=== PATIENT | male | born 1955 | race Caucasian/White ===

== ENCOUNTER 2017-03-29 12:26 | Emergency (ER) | payer MEDICARE, OTHER ==
[~2017-03-29] VITALS: Wt 109.0 kg
[~2017-03-29 12:26] MED LIST: ACET325T33 PO; FAMO20TA18 PO; GABA100C14 PO; LORA0.5T PO; OLAN15TA7 PO; SAN30GM TOP; SERT50TA6 PO
--- NOTE | 2017-03-29 13:43 | ERD ---
ER Documentation Chief Complaint Date/Time DATE: 03/29/17 TIME: 13:43 Chief Complaint BILATERAL LEG PAIN AND SENT BY MD NOGUEIRA 62-year-old man with a long history of osteomyelitis of both feet status post toe amputations is here for pain control. He is noncompliant with appointments amputation prevention center, but states he has been using linezolid and levofloxacin as prescribed daily. He denies any new discharge from his toes, no new redness or swelling to the feet, no fevers or chills, no vomiting or diarrhea, no complaints of chest pain or shortness of breath. Patient denies abdominal pain, cramping, or diarrhea. ROS All systems reviewed and are negative except as per history of present illness. Medications Home Meds Active Scripts Oxycodone HCl/Acetaminophen (Percocet 5-325 mg Tablet) 1 Each Tablet, 1 EACH PO TID for PAIN LEVEL 6-10, #12 TAB Prov:NANI DELVALLE MD 03/29/17 Ibuprofen* (Ibuprofen*) 600 Mg Tablet, 600 MG PO Q8 for PAIN AND/OR INFLAMMATION , #60 TAB Prov:NANI DELVALLE MD 03/29/17 Reported Medications Levofloxacin* (Levofloxacin*) 500 Mg Tablet, 500 MG PO DAILY, TAB STARTED 03-07-17 FOR 42 DAYS 03/29/17 Linezolid* (Zyvox*) 600 Mg Tablet, 600 MG PO BID, TAB 03/29/17 Gabapentin* (Gabapentin*) 600 Mg Tablet, 600 MG PO BID, #60 TAB 03/29/17 Discontinued Reported Medications Lorazepam* (Lorazepam*) 0.5 Mg Tablet, 0.5 MG PO BID Y for ANXIETY, TAB 07/13/16 Sertraline Hcl* (Sertraline Hcl*) 50 Mg Tablet, 50 MG PO DAILY, #30 TAB 07/13/16 Discontinued Scripts Olanzapine* (Olanzapine*) 15 Mg Tablet, 15 MG PO QHS, #30 TAB Prov:CRISTI MALONE 08/30/16 Gabapentin* (Gabapentin*) 100 Mg Capsule, 100 MG PO TID for 30 Days, CAP Prov:CRISTI MALONE 08/29/16 Famotidine* (Famotidine*) 20 Mg Tablet, 20 MG PO DAILY for 30 Days, #60 TAB Prov:NANO REGALADO MD 08/07/16 Collagenase* (Santyl*) 30 Gm Oint..gm., 1 APPLIC TOP DAILY for 30 Days, TUB Prov:NANO REGALADO MD 08/07/16 Acetaminophen* (Tylenol*) 325 Mg Tablet, 650 MG PO Q6H Y for PAIN LEVEL 1-3 OR FEVER for 30 Days, #120 TAB Prov:NANO REGALADO MD 08/07/16 Allergies Allergies: Coded Allergies: No Known Allergy (Unverified , 03/29/17) PMhx/Soc Bilateral foot osteomyelitis peripheral neuropathy with chronic paresthesias, diabetic foot ulcers, diabetes mellitus, peripheral vascular disease History of Surgery: Yes (left greater toe amputation ) Anesthesia Reaction: No Hx Neurological Disorder: Yes (nondiabetic neuropaty) Hx Respiratory Disorders: No Hx Cardiac Disorders: No Hx Psychiatric Problems: Yes (Hx of depression and anxiety. Hx of suicide attempt.) Hx Miscellaneous Medical Probl: No Hx Alcohol Use: No Hx Substance Use: Yes Hx Tobacco Use: Yes (3 CIGARETTE/D, "I DID NOT SMOKE FOR A FEW DAYS) FmHx Family History: No diabetes Physical Exam Vitals Vital Signs Date Time Temp Pulse Resp B/P Pulse Ox O2 Delivery O2 Flow Rate FiO2 03/29/17 12:30 98.0 78 18 134/83 99 Physical Exam GENERAL: Well-developed, well-nourished, well-hydrated, in no apparent distress , looks nontoxic in appearance HEENT: Moist mucous membranes, pink conjunctiva, no cervical spine tenderness or step-off deformities, no goiter, no jaundice or icterus, extraocular movements intact without pain. No submandibular induration, and no pharyngeal erythema NEURO: Alert and oriented 3, cranial nerves II through XII intact bilaterally, pupils equal round reactive to light, no focal deficits or facial asymmetry, sensation intact distally Strength 5/5 in upper and lower extremities bilaterally CARDIAC: Regular rate and rhythm, no murmurs rubs or gallops LUNGS: Clear bilaterally no wheezing crackles or stridor ABDOMEN: Soft nontender, no guarding, no rigidity, no rebound, no psoas sign no obturator sign. Normoactive bowel sounds SKIN: Warm and dry to touch, superficial ulcerations to the palmar aspect of both feet without active purulent discharge, minimal erythema EXTREMITIES: No clubbing cyanosis or edema, calves are bilaterally symmetrical, amputation of the left big toe and chronic thickening of the skin with a superficial skin ulceration without active discharge, no toe or foot skin erythema. Chronic bony deformity to the forefoot of the right foot PSYCH: Normal affect without agitation or irritability Result Diagram: 03/29/17 1440 03/29/17 1440 Results 24 hrs Laboratory Tests Test 03/29/17 14:40 White Blood Count 5.110^3/ul Red Blood Count 4.5610^6/ul Hemoglobin 14.4g/dl Hematocrit 41.8% Mean Corpuscular Volume 91.7fl Mean Corpuscular Hemoglobin 31.6pg Mean Corpuscular Hemoglobin Concent 34.4g/dl Red Cell Distribution Width 13.5% Platelet Count 4710^3/UL Mean Platelet Volume 12.2fl Neutrophils % 44.6% Lymphocytes % 40.2% Monocytes % 12.6% Eosinophils % 1.6% Basophils % 0.6% Nucleated Red Blood Cells % 0.0/100WBC Neutrophils # 2.310^3/ul Lymphocytes # 2.010^3/ul Monocytes # 0.610^3/ul Eosinophils # 0.110^3/ul Basophils # 0.010^3/ul Nucleated Red Blood Cells # 0.010^3/ul Prothrombin Time 13.7Sec Prothrombin Time Ratio 1.1 INR International Normalized Ratio 1.05 Sodium Level 144mmol/L Potassium Level 3.8mmol/L Chloride Level 102mmol/L Carbon Dioxide Level 29mmol/L Anion Gap 17 Blood Urea Nitrogen 21mg/dl Creatinine 1.04mg/dl Glucose Level 95mg/dl Calcium Level 9.1mg/dl Current Medications Medications (Trade) Dose Ordered Sig/Isiah Route PRN Reason Start Time Stop Time Status Last Admin Dose Admin Oxycodone/ Acetaminophen (Percocet (5/ 325)) 1 tab ONCE ONCE PO 03/29/17 14:30 03/29/17 14:31 DC 03/29/17 14:35 Procedures/MDM X-ray right foot 3V Interpreted by me: Bones: Bony destruction of the second metatarsal consistent with chronic osteomyelitis, no acute fracture or dislocation noted Joints: No dislocation Foreign body: None X-ray left foot 3V Interpreted by me: Bones: Surgical absence of the left first hallux and chronic bony deformities, no acute fracture dislocation Joints: No dislocation Foreign body: None CBC was unremarkable, electrolytes normal, coagulation profile was normal. I administered Percocet 1 tablet p.o. for pain control. I obtained consultation with atmospheric drier tender Dr. Walsh regarding the patient's presentation, symptomatology, x-ray findings. He recommended continued oral antibiotic therapy and follow-up in his office this week for continued wound evaluation, cleansing, wrapping. We have no indication at this time for any further intervention, imaging, or admission. Patient feels much better at this time, and vital signs are normal, symptoms have improved. I did give strict instructions to return to the ED if symptoms continue or worsen, patient will otherwise follow-up with primary care physician. Patient understood instructions and agreed to plan. Disclaimer: Inadvertent spelling and grammatical errors are likely due to EHR/ dictation software use and do not reflect on the overall quality of patient care. Also, please note that the electronic time recorded on this note does not necessarily reflect the actual time of the patient encounter. Departure Diagnosis: Primary Impression: Osteomyelitis of toe of left foot Additional Impressions: Foot osteomyelitis, right Osteomyelitis type: subacute Qualified Code: M86.271 - Subacute osteomyelitis of right foot Peripheral neuropathy Peripheral neuropathy type: polyneuropathy, unspecified Qualified Code: G62.9 - Peripheral polyneuropathy Peripheral vascular disease Diabetic foot ulcer Diabetic foot ulcer location: toe Diabetes mellitus type: type 2 Laterality : left Non-pressure ulcer stage: limited to breakdown of skin Qualified Code : E11.621 - Diabetic ulcer of toe of left foot associated with type 2 diabetes mellitus, limited to breakdown of skin Condition: NANI Moses MD Mar 29, 2017 13:43
[2017-03-29] MEDS ORDERED: OXYCODONE/ACETAMINOPHEN (5/325) TAB PO ONE (14:30)
[2017-03-29] MEDS ORDERED: GABA-526 PO (14:31)
[2017-03-29] MEDS ORDERED: LINE600T PO (14:32)
[2017-03-29] MEDS ORDERED: LEVO500T10 PO (14:34)
[2017-03-29 14:45] LABS: ABNORMAL IP MESSAGE 1; BASOPHILS % 0.6 % (0.0-2.0); EOSINOPHILS # 0.1 10^3/ul (0.0-0.5); EOSINOPHILS % 1.6 % (0.0-7.0); HEMATOCRIT 41.8 % (42.0-52.0); HEMOGLOBIN 14.4 g/dl (14.0-18.0); LYMPHOCYTES % 40.2 % (15.0-51.0); MEAN CORPUSCULAR HEMOGLOBIN 31.6 pg (29.0-33.0); MEAN CORPUSCULAR HGB CONC 34.4 g/dl (32.0-37.0); MEAN CORPUSCULAR VOLUME 91.7 fl (82.0-101.0); MEAN PLATELET VOLUME 12.2 fl (7.4-10.4); MONOCYTE # 0.6 10^3/ul (0.3-0.9); MONOCYTES % 12.6 % (0.0-11.0); NEUTROPHIL # 2.3 10^3/ul (1.6-7.5); NEUTROPHILS % 44.6 % (39.0-77.0); PLATELET COUNT 47 10^3/UL (140-415); POSITIVE DIFF @See below; RED BLOOD COUNT 4.56 10^6/ul (4.70-6.10); RED CELL DISTRIBUTION WIDTH 13.5 % (11.5-14.5); WHITE BLOOD COUNT 5.1 10^3/ul (4.8-10.8)
[2017-03-29 15:02] LABS: INR 1.05; PROTIME 13.7 Sec (12.2-14.2); PT RATIO 1.1
[2017-03-29 15:04] LABS: CALCIUM 9.1 mg/dl (8.4-10.2); CREATININE 1.04 mg/dl (0.61-1.24); POTASSIUM 3.8 mmol/L (3.5-5.1)
--- NOTE | 2017-03-29 15:10 | RADRPT ---
PROCEDURE: XR Foot. CLINICAL INDICATION: Pain, assess for osteomyelitis TECHNIQUE: AP, lateral and oblique views of the left foot was obtained. The images were reviewed on a PACS workstation. COMPARISON: 02/05/2017 FINDINGS: There is a prior amputation of the first digit distal phalanx, and deformity of the first metatarsal , with screw fixation. There is deformity of the second metatarsal phalangeal joint, with adjacent irregular articular surfaces, chronic. Osseous structures appear otherwise intact. There is anterior talar beaking. IMPRESSION: 1. Status post left first phalanx amputation. 2. Chronic irregularity of the joint 3. No new bony erosive or destructive changes are identified. RPTAT: DD .Stephon Abraham MD, MD Date Time Electronically viewed and signed by .Stephon Abraham MD, on 03/29/2017 15:10 .T/
--- NOTE | 2017-03-29 15:14 | RADRPT ---
PROCEDURE: XR Foot. CLINICAL INDICATION: Pain, assess for osteomyelitis TECHNIQUE: AP, lateral and oblique views of the right foot was obtained. The images were reviewed on a PACS workstation. COMPARISON: 02/05/2017 FINDINGS: There is screw fixation of the first metatarsal. There is hallux valgus. There is chronic deformit y of the second digit, with absence of the distal metatarsal and part of the proximal phalanx. Ther e is chronic deformity of the fourth digit proximal phalanx which appears partially absent as well. Acute bony erosive or destructive changes are not identified. IMPRESSION: 1. Chronic deformities, with partially absent osseous structures at the second digit metatarsal pha langeal joint, and fourth digit proximal phalanx. 2. Hallux valgus with first digit hardware fixation. 3. Definite bony erosive or destructive changes are not identified on plain film. RPTAT: DD .Stephon Abraham MD, MD Date Time Electronically viewed and signed by .Stephon Abraham MD, on 03/29/2017 15:14 .T/
[2017-03-29] MEDS ORDERED: IBUP-1542 PO (15:48)
[2017-03-29] MEDS ORDERED: OXYC-279 PO (15:48)
[2017-03-29 16:40] VITALS: BP 153/101; PULSE 50; RESP 18
== END 2017-03-29 16:40 | disposition home or self-care (01) ==
LOC: E/R 12:26
DX: M86.271 Subacute osteomyelitis, right ankle and foot (principal); G62.9 Polyneuropathy, unspecified; I73.9 Peripheral vascular disease, unspecified; E11.621 Type 2 diabetes mellitus with foot ulcer; L97.521 Non-pressure chronic ulcer of other part of left foot limited to breakdown of skin; Z87.891 Personal history of nicotine dependence
CPT/HCPCS: 73630; 80048; 85025; 85610

== ENCOUNTER 2018-07-21 19:54 | Inpatient (IN) | END 2018-07-30 16:14 | DRG 872 ==